=== PATIENT | male | born 1985 | race Caucasian/White ===

== ENCOUNTER 2017-05-17 09:41 | Inpatient (IN) | payer MEDICARE, MEDICAID ==
[~2017-05-17] VITALS: Ht 177.8 cm; Wt 120.3 kg
[2017-05-17] VITALS (10 sets, daily range): BP systolic 126–152; BP diastolic 78–93; PULSE 110–124; RESP 16–24; O2SAT 94–100
--- NOTE | 2017-05-17 09:50 | ED.REPORT ---
HPI-Psychiatric Illness Date of Service May 17, 2017 ED Provider: Daniel Culp DO Pt is a 31 year old male with a history of abscess who presents to the ED complaining of suicidal ideation. The pt reports using methamphetamine, dextromethorphan, and heroin. Patient reports using dextromethorphan over the last 3 days, he is unsure regarding the exact formulation however he believes some of the dextromethorphan came from a formulation of Margarette-Van Buren. His last drug use was this morning. He c/o associated insomnia. Pt also reports swelling , redness, and pain to his left forearm. He denies vomiting, SOB, and abdominal pain. The pt didn't feel safe being at home because he was worried that he would overdose. He states that he was feeling suicidal prior to his arrival with a plan to overdose on heroin, but he gave his heroin away before he could do it. Nursing Notes Stated Complaint: VOLUNTARY PSYCHIATRIC ADMISSION Chief Complaint: Suicidal ideation Nursing Notes Reviewed: Yes Allergies: Coded Allergies: No Known Allergies (Verified , 05/17/17) Uncoded Allergies: NO FOOD OR MED ALLERGIES (Allergy, Unknown, 02/01/04) No Known Allergies (Allergy, Unknown, 02/01/04) General Time Seen by MD: 09:48 Chief Complaint Suicidal ideation Hx Obtained From: Patient Arrived By: Walk-in Onset Occurred: Onset unknown Symptom Duration: Since onset Location: : Arm left Quality: Painful Severity: Current: Moderate Severity: Maximum: Moderate Recent Healthcare: No recent doctor visit, No recent hospitalization Similar Sx Previous: No Risk-Psychiatric Illness Suicide Risk Stratification Suicide Risk Factors - Adult: : Substance abuseNo: Alcohol use RF Statements: Risk factors reviewed Past Medical History Past Medical History Asthma Anxiety Past Surgical History None reported Smoking History Current Every Day Smoker Social History Alcohol Use: Denies alcohol use Drug Use: IV drugs, Meth, Other (dextromethorphan) Other Social History: Good social support Ambulatory Status Independent Review of Systems + left arm erythema Respiratory: Denies: Shortness of breath GI: Denies: Abdominal pain, Vomiting Psychiatric: Reports: Suicidal ideation Complete sys rev & neg: except as marked. Musculoskeletal: Reports: Extremity pain (left arm), Extremity swelling (left arm) Physical Exam Initial Vital Signs Vital Signs (First) Date Time Temp Pulse Resp B/P Pulse Ox O2 Delivery O2 Flow Rate FiO2 05/17/17 09:53 37.4 124 20 152/84 95 Room Air Initial VS: Reviewed Head / Eyes: Atraumatic, Normocephalic Neck: Supple, Full range of motion Respiratory: Breath sounds normal, Clear to auscultation, No respiratory distress Abdomen / GI: Soft, Non-tender Skin: Warm, Dry, No cyanosis General/Constitutional: Awake, Alert Neurologic: Speech NL, CN II - XII intact PSYCHIATRIC: Not actively suicidal. Suicidal prior to ED visit with plan to overdose on heroin. Cardiovascular: Regular rhythm, Heart sounds NL Heart Rate / Rhythm: Positive: Tachycardia Hypertensive Upper Extremity / MS: Neurologic intact, Vascular intact Cellulitus of the left forearm without induration or fluctuation or abscess. Interpretation & Diagnostics Lab Results Interpretation Result Diagram: 05/17/17 1020 05/17/17 1020 Test 05/17/17 10:20 White Blood Count 13.0th/mm3 (3.8-10.1) Red Blood Count 4.53mil/mm3 (4.40-5.80) Hemoglobin 14.3g/dL (13.8-17.2) Hematocrit 40.1% (41.0-50.0) Mean Corpuscular Volume 88.5fL (81-100) Mean Corpuscular Hemoglobin 31.6pg (27.0-35.0) Mean Corpuscular Hemoglobin Concent 35.7% (32.0-37.0) Red Cell Distribution Width 12.7% (12.3-15.4) Platelet Count 216bil/L (150-400) Neutrophils (%) (Auto) 64.1% (40-74) Lymphocytes (%) (Auto) 20.0% (14-46) Monocytes (%) (Auto) 13.7% (4-12) Eosinophils (%) (Auto) 1.5% (0-5) Basophils (%) (Auto) 0.2% (0-3) Prothrombin Time 10.7sec (8.1-12.5) Prothromb Time International Ratio 1.00ratio Sodium Level 133mEq/L (134-144) Potassium Level 3.4mEq/L (3.5-5.2) Chloride Level 91mEq/L (97-108) Carbon Dioxide Level 24mmol/L (18-29) Blood Urea Nitrogen 20mg/dL (6-20) Creatinine 1.36mg/dL (0.76-1.27) Estimat Glomerular Filtration Rate 65mL/min (>59) Glucose Level 108mg/dL (60-99) Calcium Level 8.4mg/dL (8.5-10.1) Total Bilirubin 0.6mg/dL (0.0-1.2) Aspartate Amino Transf (AST/SGOT) 368U/L (0-50) Alanine Aminotransferase (ALT/SGPT) 116U/L (0-44) Alkaline Phosphatase 58U/L (25-150) Total Protein 7.0g/dL (6.4-8.4) Albumin 4.1g/dL (3.4-5.0) Thyroid Stimulating Hormone (TSH) 1.920uIU/mL (0.450-4.500) Hold Uribe Top Tube Received (Received) Salicylates Level 3.0ug/mL (30-250) Acetaminophen Level 15.0ug/mL Rx (10-25) Lab Results Interpretation: pH - 7.398 pCO2 - 49 cHCO3 - 29.4 cBase - 4.1 tHb - 14.6 sO2 - 61.2 FCOHb - 3.1 FMetHb - 1.0 FO2Hb - 58.7 Re-Eval/Medical Decision Med Decision/Clinical Course Polysubstance abuse with presumed acetaminophen overdose. (Margarette-Van Buren formulations with dextromethorphan containing acetaminophen) Will start N-acetylcysteine. Additionally the patient has cellulitis of the left forearm from IV drug abuse without evidence of abscess currently and thoughts of suicidal ideation without intent and contracts for safety. Source of Hx: Old records Re-Evaluation/Progress #1: Time of Eval: 11:28 Re-Evaluation/Progress Note: Pt rechecked. Pt reports that he was tested negative for Hep C a few weeks ago. All questions addressed. Re-Evaluation/Progress #2: Time of Eval: 11:36 Re-Evaluation/Progress Note: Pt rechecked. Informed pt of plan for admission. Pt understands and agrees with plan for admission. All questions addressed. Consultation #1: Call Returned at: 11:30 Magician Helper: Agrees with eval, Agrees with plan Note: Consulted with Poison Control. Discussed pt's case. Consultation #2: Call Returned at: 11:36 Magician Helper: Agrees with eval, Agrees with plan Note: Consulted with Pharmacy. Discussed pt's case. They will start the acetominophen toxicity protocol. Consultation #3: Referral / Consult Name: Gt Ba MD Consulted With: Hospitalist Call Returned at: 12:05 Magician Helper: Will see patient, Agrees with eval, Agrees with plan, Accepts admit Counseled Regarding: Diagnosis, Lab results, Need for admission Discharge & Departure Impression: Primary Impression: Acetaminophen toxicity Encounter type: initial encounter Injury intent: undetermined intent Qualified Code: T39.1X4A - Poisoning by 4-Aminophenol derivatives, undetermined , initial encounter Additional Impressions: Suicidal ideation Polysubstance abuse Cellulitis of left forearm Disposition: ADMITTED TO HOSPITAL Discharge Condition All VS Reviewed: Yes Condition: Stable Referrals: [facility] Crit Care Except Billable Proc Time Spent: 30-74 minutes (35minutes) Services Performed: Patient management by me, Time spent at bedside, Reviewing test results, Reviewing imaging, Discussing patient care, Documentation in record Critical Care Notes: See MDM Scribe Attestation Portions of this note were transcribed by Dian Camp. I, Dr. Culp personally performed the history, physical exam and medical decision-making; I reviewed and confirmed the accuracy of the information in the transcribed note. Signed by: Paulette Rios, 05/17/17. copies to: [facility] Daniel Culp DO May 17, 2017 09:50 Dian Ken May 17, 2017 10:02
[2017-05-17] MEDS ORDERED: 0.9% Sodium Chloride 1,000 ML IV ONE (10:00)
[2017-05-17] MEDS ORDERED: Trimethoprim-Sulfa 160 mg-800 mg Tablet PO ONE (10:20)
[2017-05-17 10:37] LABS: BASOPHILS % (AUTO) 0.2 % (0-3); EOSINOPHILS % (AUTO) 1.5 % (0-5); MONOCYTES % (AUTO) 13.7 % (4-12); Mean Corpuscular Hemoglobin 31.6 pg (27.0-35.0); Mean Corpuscular Volume 88.5 fL (81-100); NEUTROPHILS % (AUTO) 64.1 % (40-74); Platelet Count 216 bil/L (150-400)
--- NOTE | 2017-05-17 10:38 | ABG ---
DateTimeAnalyzed 10:30:00 -_ pH ____7.398 - 7.320 7.420 pCO2 ___48.7__ -mmHg 41.0 51.0 HCO3- ___29.4__ -mmol/L ABE ____4.1__ -mmol/L tHb ___14.6__ -g/dL 12.0 18.0 O2Hb ___58.7__ -% COHb ____3.1__ -% 0.0 1.5 MetHb ____1.0__ -% 0.4 1.5 sO2 ___61.2__ -% FIO2 ___21.0__ -% Drawn By LAB - Date/Time Notified____ 10:37:00 -_ Notified By rs - Notified Whom Okelley, Daniel -____ B 757 -mmHg tO2 ___12.0__ -Vol%
[2017-05-17] MEDS: D5W IV SCH ×4 (11:40→23:03)
[2017-05-17] MEDS ORDERED: Acetylcysteine 5,000 mg/500 mL D5W IV SCH ×2 (11:40)
[2017-05-17] MEDS: ACETYLCYSTEINE IV SCH ×4 (11:40→23:03)
[2017-05-17] MEDS ORDERED: 0.9% Sodium Chloride 1,000 ML IV SCH (12:06)
[2017-05-17] MEDS ORDERED: Alum-Mag Hydrox-Simeth 30 mL Suspension PO PRN ×2 (12:10→12:50)
[2017-05-17] MEDS ORDERED: Ondansetron 2 mg/mL 2 mL Inj IVPUSH PRN ×2 (12:10→12:50)
[2017-05-17] MEDS ORDERED: Polyethylene Glycol (PEG) 17 Gm Powder PO PRN (12:50)
[2017-05-17] MEDS ORDERED: CLON0.1T PO (13:15)
[2017-05-17] MEDS ORDERED: VENL150C98 PO (13:15)
[2017-05-17] MEDS ORDERED: AMIT100T2 PO (13:15)
[2017-05-17] MEDS ORDERED: MELA1TAB21 PO (13:15)
[2017-05-17] MEDS ORDERED: ALBU8.5H2 INHALATION (13:16)
[2017-05-17] MEDS: 0.9% Sodium Chloride 1,000 ML IV SCH ×2 (15:46→22:48)
--- NOTE | 2017-05-17 15:49 | PCM.HPMED ---
Subjective Date of Service May 17, 2017 Primary Provider: Admitting Physician: Gt Ba MD Primary Care Physician: [facility] Chandan Tang Attending Physician: Gt Ba MD Admit Status: From the Emergency Department, [facility] Telemetry Chief Complaint: Weakness and anxiety History of Present Illness: This patient presented to the emergency department with weakness and anxiety. He has a history of a recent relapse involving both methamphetamine smoking and heroin injection. The patient had been clean for about 5 months and was seen in [facility]. He is currently on a court-ordered program. About 3 or 4 days ago he developed a cough preceded the use of several qzds-[id number]-[id number] cough syrups. He notes that his use of these cough syrups and Margarette-Marietta escalated. He is then very for you regarding the last 2 days. However he does have some memory now of using heroin as well as smoking meth. There really is no additional information that he can provide. He was suspected to have a Tylenol overdose but one asked about this has no clear memory of taking Tylenol or attempted to hurt himself. His Tylenol level was normal however his LFTs were elevated. He was started on Mucomyst protocol for possible Tylenol overdose after discussion with the poison center. The patient feels extremely anxious. He notes redness in his arm associated with multiple obvious attempts at IV access for heroin. He denies any shortness of breath. He really cannot provide much in terms of specific other information. No fevers or chills no pain. Review of Systems: He denies diarrhea or nausea. He denies any leg swelling. All else reviewed and otherwise unremarkable except as noted in history of present illness. Allergies Coded Allergies: No Known Allergies (Verified , 05/17/17) Uncoded Allergies: NO FOOD OR MED ALLERGIES (Allergy, Unknown, 02/01/04) No Known Allergies (Allergy, Unknown, 02/01/04) Home Medications None PMH Bipolar Major depression Anxiety Asthma Obesity Heroine abuse Methamphetamine abuse Surgical History None Family History CAD and asthma Social History Occupation: none Hx Alcohol Use: No Hx Substance Use: Yes (meth, heroine, dextromethaphine) Hx Tobacco Use: No Smoking Status: Current Every Day Smoker Exam Vital Signs Vital Sign - Last Date Time Temp Pulse Resp B/P Pulse Ox O2 Delivery O2 Flow Rate FiO2 05/17/17 14:20 115 05/17/17 13:58 36.9 16 138/93 95 Room Air Exam Oriented 3. Moderately anxious, fluent speech. Anxious affect. The patient appears to be somewhat twitchy. Hyperkeratotic. Normal skull. Normal nose and ears. Anicteric sclera, symmetric pupils Oropharynx is unremarkable, no facial droop. Neck is supple, normal thyroid. No adenopathy. Lungs are clear, normal effort rate. Heart is regular without murmur gallop or rub. Abdomen soft, nondistended or tender. Extremities are free of pedal edema. Good radial and pedal pulses. Skin is free of rash, lesions. No petechiae or ecchymosis. He has multiple pustules over his face. He has multiple tattoos over her arms. Her form is somewhat red with multiple obvious areas of IV access. Joints are grossly normal. Cranial nerves are grossly normal. Motor strength is normal in all extremities. Normal muscular tone. Lab and Diagnostics Result Diagram: 05/17/17 1020 05/17/17 1020 Assessment & Plan Possible Tylenol overdose, present on admission and active. We will continue the Mucomyst protocol was ordered EGD and follow liver function tests. Elevated liver function tests, present on admission and active. We will check hepatitis C antigen and reflex PCR. Anxiety, present on admission. This is likely related to anxiety and methamphetamine as well as her withdrawal. We will treat him with lorazepam as needed and follow clinically. Methamphetamine abuse, present on admission. The plan is to treat for withdrawal symptoms Heroin abuse, present on admission. The plan is for withdrawal symptoms Possible left forearm cellulitis, present on admission. Nares swab for MRSA and ceftriaxone. Bipolar and anxiety, present on admission. We will try to decrease determine if he has been on medications recently and reinstitute these. Patient is admitted for observation status. Assessment 1 I length of stay. Pain Evaluation: Adequate Pain Control Resuscitation Status: CPR: Attempt Resuscitation Time spent 40 minutes Gt Ba MD May 17, 2017 15:49
--- NOTE | 2017-05-17 19:24 | NUR ---
Admit to PCC Pt admitted to [facility] at 13:00. Report called from Lucia silva RN. Pt has inflammation on his left forearm which looks infected, physician aware. Pt also reports that he broke a tooth yesterday and he is very fixated on it, picking at it constantly till it is bleeding. Cardiac: Pt denies CP, Tele SR 90-110 Resp: Pt denies SOB, SPo2 mid 90s on RA. GI/: Pt had nausea and vomiting in the first 30min post transfer to [facility]. 200ml of emesis. pt continues to have low grade nausea. denies wanting meds for nausea. Neuro: A&Ox3, SHELLEY, Pt is very anxious, picking his teeth and pacing the room. 1mg ativan IV given with mild effectiveness, discussed increasing dose with physician for NOC shift, dose increased to 1-2mg. Pt reliably signed a no self-harm agreement upon admit.
[2017-05-17] MEDS ORDERED: Potassium Chloride 20 mEq SR Tablet PO ONE (21:45)
[2017-05-17] MEDS: cefTRIAXone Inj 1,000 MG in Dextrose 5% Minibag Plus 50 ML IV SCH (22:19)
--- NOTE | 2017-05-17 22:30 | NUR ---
Potassium: P: Potassium of 3.4--not treated. I: Dr. Richardson notified of potassium level. Order obtained for 20 meq or KCl PO. E: Dose administered. Will cont. to monitor.
[2017-05-18] VITALS (10 sets, daily range): BP systolic 110–123; BP diastolic 67–74; PULSE 82–105; RESP 16–22; O2SAT 92–98
[2017-05-18] MEDS ORDERED: Haloperidol 5 mg/mL Inj IVPUSH ONE (02:15)
--- NOTE | 2017-05-18 03:10 | NUR ---
Transfer of Rooms: Pt pulled out 3rd PIV within minutes after placement. Pt transferred to room 2008 at 0255 for better visibility of pt. Pt ambulated with RN to room; pt noted to have an unsteady gait. [place] bed alarm activated. Bed in the low and locked position. Will cont. to closely monitor pt.
[2017-05-18 03:41] LABS: BASOPHILS % (AUTO) 0.2 % (0-3); EOSINOPHILS % (AUTO) 2.1 % (0-5); MONOCYTES % (AUTO) 16.9 % (4-12); Mean Corpuscular Hemoglobin 31.7 pg (27.0-35.0); Mean Corpuscular Volume 88.1 fL (81-100); NEUTROPHILS % (AUTO) 53.1 % (40-74); Platelet Count 219 bil/L (150-400)
--- NOTE | 2017-05-18 04:41 | NUR ---
Effects of Haldol: P: Pt very restless and fidgety; constantly up and moving in the room after 8 mg of IV Ativan. Pt pulling out PIVs and hallucinating--both auditory and visual hallucinations noted. I: Dr. Richardson notified. New order obtained for 5 mg of IV Haldol. Dose administered at 0230. Pt proceeded to pull out his 3rd PIV after Haldol was administered. Pt moved to room 2008 for better pt visibility. PIV replaced and IVFs continued. [place] bed alarm activated, bed in the low and locked position and call light placed within reach of the pt. E: Pt fell asleep and is sleeping soundly. Continuous pulse oximetry placed on the pt; pt saturating well and in stable condition. HR in the high 90s.
--- NOTE | 2017-05-18 05:11 | NUR ---
Oxygen Desaturation: Pt noted to desaturate down to the 80s on RA. Pt placed on 2L of oxygen per NC. O2 saturations currently noted at 94 to 97%. Pt remains on continuous pulse oximetry. Will cont. to monitor.
[2017-05-18] MEDS ORDERED: KCl 40 mEq/D5W 500 mL 40 MEQ in IV Premix 1 EACH IV ONE (09:00)
[2017-05-18] MEDS: 0.9% Sodium Chloride 1,000 ML IV SCH (09:02)
--- NOTE | 2017-05-18 10:35 | NUR ---
Social Work: Screen/Multidisciplinary Rounds D: Pt discussed in multidisciplinary rounds; the patient is on day one of stay after a relapse of IV meth and heroin use. The patient is a resident at [facility] and involved with court ordered treatment. The patient reported to ED staff that he had a 5 month period of sobriety when he became sick with a cold. He began using cold medicine inducing a stretch of memory loss/impairment. Patient awoke yesterday to find that he had relapsed on heroin and meth but was endorsing suicidal ideation due to relapse. He came to the ED for evaluation but required medical hospitalization. The patient is not medically stable at this time and receiving IV Halidol. Provider has placed a CM order to complete a MH assessment when the patient is medically cleared, which will likely be tomorrow. FILLING HAULER acknowledges order and CM will see him when provider states he is appropriate for assessment. A: Pt who was living at the [facility] as a part of a court-ordered treatment program. P: Evolving; FILLING HAULER to continue to follow patient's clinical progress and complete MH assessment when the patient is medically stable/clear. JUSTIN Collier
[2017-05-18] MEDS ORDERED: Potassium Chloride 20 mEq SR Tablet PO ONE (12:10)
--- NOTE | 2017-05-18 13:48 | PCM.PNMED ---
Subjective Date of Service May 18, 2017 Subjective He is feeling better today. He denies any chest pain or cough. No shortness of breath. No abdominal pain. He does not remember much of last night. He did require Haldol 1 for agitation. His symptoms were not improved initially with lorazepam. Overnight events noted. Exam Vital Signs Vital Sign - Last Date Time Temp Pulse Resp B/P Pulse Ox O2 Delivery O2 Flow Rate FiO2 05/18/17 10:11 36.3 99 16 112/68 96 Nasal Cannula 1.00 Intake and Output 05/17/17 05/17/17 05/18/17 Cumulative From/Thru 15:00 23:00 07:00 05/17/17 09:53 - 05/18/17 06:45 Intake Total 1275 ml 1504 ml 2141 ml 4920 ml Output Total 1975 ml 1975 ml Balance 1275 ml -471 ml 2141 ml 2945 ml Intake Oral 600 ml 1130 ml 1730 ml IV Total 1275 ml 904 ml 1011 ml 3190 ml Output Urine Total 1975 ml 1975 ml # Bowel Movements 2 2 Exam Alert and oriented -3, no distress. Fluent speech Anicteric sclera. Lungs are clear with normal rate and effort Heart is regular without murmur gallop or rub Abdomen soft nontender, flat Extremities are free of edema. Skin is free of rash or lesions. Except he has several excoriations on his face. His left forearm has decreased redness but there is still multiple injections sites noted. IVs and Medications Medications Reviewed: Medications were reviewed in detail Lab and Diagnostics Result Diagram: 05/18/17 0250 05/18/17 0250 Assessment & Plan Possible Tylenol overdose, present on admission and improving. Poison control recommended finishing his acetylcysteine protocol. This will continue. He does have elevated LFTs which are stable but etiology is really unclear. Awaiting hepatitis C serology. Elevated liver function tests, present on admission and active. Await hepatitis C antigen and reflex PCR. Anxiety, present on admission and improved. This is likely related to anxiety and methamphetamine as well as heroin heroin withdrawal. The patient at this point is much improved. We will use Haldol as needed and oral lorazepam. Methamphetamine abuse, present on admission had resolved. The plan is to continue to treat for withdrawal symptoms Heroin abuse, present on admission and resolved. The plan is to monitor for withdrawal symptoms Possible left forearm cellulitis, present on admission and improving. Nares swab for MRSA and ceftriaxone. Bipolar and anxiety, present on admission and stable. We will try to decrease determine if he has been on medications recently and reinstitute these. Patient was admitted for observation status. We will change him to inpatient status is 0 require at least 1 more night of monitoring. Assessment 1 I length of stay. Resuscitation Status: CPR: Attempt Resuscitation Gt Ba MD May 18, 2017 13:48
[2017-05-18 16:52] LABS: INR 1.03 ratio
[2017-05-18 17:01] LABS: Bilirubin, Direct < 0.2 mg/dL (0.0-0.3)
--- NOTE | 2017-05-18 17:20 | NUR ---
Multidisciplinary Communication 0930 - Discussed his care with Dr. Ba and the rest of the multidisciplinary care team during morning rounds. Asked if he could have a prn order for Haldol as that seemed to work for him during the night. Dr. Ba said he would look into this (when assessing the pt later in the day the pt had done well and had not needed any Haldol. Dr. Ba and this nurse decided he didn't need anymore ordered). Also, asked Dr. Ba to order by mouth potassium instead of the IV as it was incompatible with his Acetylcysteine. He said he would change it. 1106 - Spoke to Andria from the Poison Control Center and gave her a report on the pt's condition. She said to make sure to order an LFT and INR lab draw about 1-2 hours before the Acetylcysteine finished up. She said she would call back later in the day to see what the results were. About 1200 - Reminded Dr. Ba to order my mouth potassium as none had been ordered. It was ordered and given to the patient. 1445 - His mother called and was given an update over the phone with the patient's permission. She said she would likely come in to see him later in the evening. 1545 - His Guidance Counselor came by to see him. With the patient's verbal consent his toxicology screen results from the ED were shown and given to the counselor. She talked to him about his care plan once he discharged from the hospital. 1550 - Per Dr. Cadet's request Andria from the Poison Control Center was called back. Dr. Cadet wanted to know if his LFT and INR needed to be drawn again. Andria confirmed that per protocol they needed to. Notified Dr. Cadet and the labs were ordered. Care continues.
[2017-05-18] MEDS: cefTRIAXone Inj 1,000 MG in Dextrose 5% Minibag Plus 50 ML IV SCH (20:07)
[2017-05-19] VITALS (7 sets, daily range): BP systolic 102–136; BP diastolic 68–83; PULSE 74–93; RESP 16–18; O2SAT 95–99
--- NOTE | 2017-05-19 03:48 | NUR ---
NOC Uneventful night. Pt slept and had no complaints. Pt sleepy but able to wake up with little stimuli. Pt oriented when asked questions. VSS. Continuing to monitor. Addendum: 05/19/17 at 0637 by PATRICIA GUSTAFSON RN Andria from Poison Control called at 1999 and was given lab results including INR and AST/ALT. Andria will call back in the AM to check patient status.
--- NOTE | 2017-05-19 12:57 | NUR ---
Case Management: [facility] delivered and explained to patient. Signed original placed in chart. Copy left at bedside. Sherrie Scherer RN
--- NOTE | 2017-05-19 15:34 | PCM.PNMED ---
Subjective Date of Service May 19, 2017 Subjective He is from a low bit better today. He is still weak. He is a little bit foggy. She denies any abdominal pain, nausea. No diarrhea or shortness of breath. No hallucinations. No overnight events noted. Exam Vital Signs Vital Sign - Last Date Time Temp Pulse Resp B/P Pulse Ox O2 Delivery O2 Flow Rate FiO2 05/19/17 11:58 36.4 78 16 102/68 96 Room Air 05/19/17 02:47 1.00 Intake and Output 05/18/17 05/18/17 05/19/17 Cumulative From/Thru 15:00 23:00 07:00 05/17/17 09:53 - 05/19/17 05:26 Intake Total 2218 ml 991 ml 8129 ml Output Total 1975 ml Balance 2218 ml 991 ml 6154 ml Intake Oral 756 ml 750 ml 3236 ml IV Total 1462 ml 241 ml 4893 ml Output Urine Total 1975 ml # Voids 5 4 9 # Bowel Movements 0 0 2 Exam Alert and oriented -3, no distress. Fluent speech Anicteric sclera. Lungs are clear with normal rate and effort Heart is regular without murmur gallop or rub Abdomen soft nontender, flat Extremities are free of edema. Skin is free of rash or lesions. IVs and Medications Medications Reviewed: Medications were reviewed in detail Lab and Diagnostics Result Diagram: 05/18/17 0250 05/19/17 0830 Assessment & Plan Possible Tylenol overdose, present on admission and improving. The patient was treated with NAC protocol. His LFTs are normalizing. Again this was for possible Tylenol overdose with hepatitis. A hepatitis C serology was unremarkable. Elevated liver function tests, present on admission and active. Negative hepatitis C antibody. Patient will continue to be observed for presumed for possible Tylenol withdrawal. He continues to be unclear as to what exactly happened the last several days prior to his admission. Anxiety, present on admission and improved. This is likely related to anxiety and methamphetamine as well as heroin heroin withdrawal. The patient at this point is much improved. We will use Haldol as needed and oral lorazepam. Methamphetamine abuse, present on admission had resolved. He continues to improve. Heroin abuse, present on admission and resolved. The plan is to monitor for withdrawal symptoms Possible left forearm cellulitis, resolved. Continue ceftriaxone Bipolar and anxiety, present on admission and stable. We will try to decrease determine if he has been on medications recently and reinstitute these. Patient was initially admitted to observation status, however this is changed inpatient status given his higher medical needs a longer period of time required for observation. Anticipate discharge tomorrow, Monday, May 20. The patient has been in touch with his supervisor publications production for a transition plan. Resuscitation Status: CPR: Attempt Resuscitation Gt Ba MD May 19, 2017 15:34
--- NOTE | 2017-05-19 17:00 | NUR ---
Multidisciplinary Communication [id number] - Discussed his care with Dr. Ba, Dr. Cadet, and the rest of the multidisciplinary care team during morning rounds. [id number] - Paged Dr. Ba who called back. Asked him if the patient could be off telemetry to take a shower. Dr. Ba said that yes he could and he would actually place an order to discontinue telemetry. It was discontinued and he took a shower. Care continues. Addendum: 05/19/17 at 1708 by RHIANNA URBINA RN [id number] - The [facility] called to get report. Gave them a report on his status, vitals, and labs. They said to call them back if he had any further issues. Care continues.
[2017-05-19] MEDS: cefTRIAXone Inj 1,000 MG in Dextrose 5% Minibag Plus 50 ML IV SCH (21:18)
[2017-05-20 05:04] VITALS: BP 109/69; PULSE 90; RESP 16; O2SAT 97
--- NOTE | 2017-05-20 05:45 | NUR ---
Rest/Safety Patient sleeping soundly overnight. Rouses easily for care. Denies thoughts of self harm at this time. Frequent rounding.
[2017-05-20 09:30] VITALS: BP 123/74; PULSE 78; RESP 16; O2SAT 97
[2017-05-20 09:54] LABS: INR 0.95 ratio
[2017-05-20 10:15] LABS: Bilirubin, Direct 0.2 mg/dL (0.0-0.3)
--- NOTE | 2017-05-20 15:36 | PCM.DIMED ---
Discharge Instructions Date of Service May 20, 2017 Dates of Hospitalization May 17, 2017 at 12:17 Discharge Diagnosis Discharge Diagnosis Possible Tylenol overdose, resolved. Elevated liver function tests, improved.. Anxiety, stable. Methamphetamine abuse, improved. Heroin abuse, improved. Possible left forearm cellulitis, resolved. Bipolar and anxiety, table. Call your provider Call your provider for: Fever or Chills Patient Instructions Patient Instructions You are being discharged to the detox unit and to return with guidance from your supervisor commissary production to [facility] approximately 2 days. She will be continued on your usual two antianxiety and depression medications. Follow-up plan He will resume group and other follow-up as instructed by your case finisher on Monday. Gt aB MD May 20, 2017 15:36
[2017-05-20] MEDS ORDERED: CLON0.1T PO (15:40)
[2017-05-20] MEDS ORDERED: VENL150C98 PO (15:40)
[2017-05-20] MEDS ORDERED: AMIT100T2 PO (15:40)
--- NOTE | 2017-05-20 15:46 | PCM.DC.MED ---
Discharge Summary Date of Service May 20, 2017 Dates of Hospitalization Date of Hospital Admission May 17, 2017 at 12:17 Date of Discharge: May 20, 2017 Providers: Admitting Physician: Gt Ba MD Primary Care Physician: [facility] Deyanira-Les ClydeAlannadarian Attending Physician: Gt Ba MD Diagnosis at Time of Discharge Diagnosis at Time of Discharge Possible Tylenol overdose, resolved. Elevated liver function tests, improved.. Anxiety, stable. Methamphetamine abuse, improved. Heroin abuse, improved. Possible left forearm cellulitis, resolved. Bipolar and anxiety, table. Consultations Poison control Procedures Invasive Procedures None Brief History This patient presented to the emergency department with weakness and anxiety. He has a history of a recent relapse involving both methamphetamine smoking and heroin injection. The patient had been clean for about 5 months and was seen in the [facility]. He is currently on a court-ordered program. About 3 or 4 days ago he developed a cough preceded the use of several [id number] cough syrups. He notes that his use of these cough syrups and [employer] escalated. He is then very for you regarding the last 2 days. However he does have some memory now of using heroin as well as smoking meth. There really is no additional information that he can provide. He was suspected to have a Tylenol overdose but one asked about this has no clear memory of taking Tylenol or attempted to hurt himself. His Tylenol level was normal however his LFTs were elevated. He was started on Mucomyst protocol for possible Tylenol overdose after discussion with the poison center. The patient feels extremely anxious. He notes redness in his arm associated with multiple obvious attempts at IV access for heroin. He denies any shortness of breath. He really cannot provide much in terms of specific other information. No fevers or chills no pain. Hospital Course Possible Tylenol overdose, present on admission and improving. The patient was treated with NAC protocol. His LFTs are normalizing. Again this was for possible Tylenol overdose with hepatitis. A hepatitis C serology was unremarkable. Elevated liver function tests, present on admission and active. Negative hepatitis C antibody. Patient will continue to be observed for presumed for possible Tylenol withdrawal. He continues to be unclear as to what exactly happened the last several days prior to his admission. Anxiety, present on admission and improved. This is likely related to anxiety and methamphetamine as well as heroin heroin withdrawal. The patient at this point is much improved. We will use Haldol as needed and oral lorazepam. Methamphetamine abuse, present on admission had resolved. He continues to improve. Heroin abuse, present on admission and resolved. The plan is to monitor for withdrawal symptoms Possible left forearm cellulitis, resolved. Continue ceftriaxone Bipolar and anxiety, present on admission and stable. We will try to decrease determine if he has been on medications recently and reinstitute these. Patient was initially admitted to observation status, however this is changed inpatient status given his higher medical needs a longer period of time required for observation. Hospital course. This patient was admitted and treated with Mucomyst for possible Tylenol overdose. He had normalization of all teeth and no recollection of ingesting Tylenol. He also came in with apparent methamphetamines and heroin intoxication. The outpatient detox without any major problems. Berrios of anxiety. He is also treated for left forearm cellulitis with ceftriaxone IV for several days. On the day of discharge coordination was made to gain him a detox bed where he will be observed the rest of the weekend and then discharged back to [facility] on Monday. Exam Vital Signs (Last) Date Time Temp Pulse Resp B/P Pulse Ox O2 Delivery O2 Flow Rate FiO2 05/20/17 09:30 36.9 78 16 123/74 97 Room Air 05/19/17 02:47 1.00 Exam Patient was seen and examined on the day of discharge Test 05/17/17 10:20 05/17/17 12:45 05/18/17 02:50 05/19/17 08:30 Thyroid Stimulating Hormone (TSH) 1.920uIU/mL (0.450-4.500) Hold Uribe Top Tube Received (Received) Salicylates Level 3.0ug/mL (30-250) Acetaminophen Level 15.0ug/mL Rx (10-25) Hepatitis C Antibody <0.1s/co ratio (0.0-0.9) Hold Urine Received (Received) White Blood Count 11.4th/mm3 (3.8-10.1) Red Blood Count 4.13mil/mm3 (4.40-5.80) Hemoglobin 13.1g/dL (13.8-17.2) Hematocrit 36.4% (41.0-50.0) Mean Corpuscular Volume 88.1fL (81-100) Mean Corpuscular Hemoglobin 31.7pg (27.0-35.0) Mean Corpuscular Hemoglobin Concent 36.0% (32.0-37.0) Red Cell Distribution Width 12.4% (12.3-15.4) Platelet Count 219bil/L (150-400) Neutrophils (%) (Auto) 53.1% (40-74) Lymphocytes (%) (Auto) 27.4% (14-46) Monocytes (%) (Auto) 16.9% (4-12) Eosinophils (%) (Auto) 2.1% (0-5) Basophils (%) (Auto) 0.2% (0-3) Sodium Level 139mEq/L (134-144) Potassium Level 3.6mEq/L (3.5-5.2) Chloride Level 103mEq/L (97-108) Carbon Dioxide Level 23mmol/L (18-29) Blood Urea Nitrogen 10mg/dL (6-20) Creatinine 0.72mg/dL (0.76-1.27) Estimat Glomerular Filtration Rate 135mL/min (>59) Glucose Level 97mg/dL (60-99) Calcium Level 8.3mg/dL (8.5-10.1) Test 05/20/17 09:29 Prothrombin Time 10.2sec (8.1-12.5) Prothromb Time International Ratio 0.95ratio Total Bilirubin 0.3mg/dL (0.0-1.2) Direct Bilirubin 0.2mg/dL (0.0-0.3) Aspartate Amino Transf (AST/SGOT) 102U/L (0-50) Alanine Aminotransferase (ALT/SGPT) 90U/L (0-44) Alkaline Phosphatase 45U/L (25-150) Total Protein 5.7g/dL (6.4-8.4) Albumin 3.4g/dL (3.4-5.0) Discharge Medications Discharge Medications Amitriptyline (Amitriptyline) 100 Mg Tablet 100 MG PO DAILY Prescribed by: GT BA MD Clonidine (Clonidine) 0.1 Mg Tablet 0.1 MG PO DAILY Prescribed by: GT BA MD Melatonin/Pyridoxine HCl (B6) (Melatonin 10 mg Tablet) 1 Each Tab.mphase 1 EACH PO HS (Reported) Venlafaxine ER (Venlafaxine ER) 150 Mg Cap.er.24h 150 MG PO DAILY Prescribed by: GT BA MD As needed Albuterol HFA (Proair HFA) 8.5 Gm Hfa.aer.ad 2 PUFFS INHALATION Q4H PRN PRN For Shortness of Breath (Reported) Followup Plan Disposition: Detox bed Follow-up plan He will resume group and other follow-up as instructed by your case packer and sealer on Monday. Patient Instructions You are being discharged to the detox unit and to return with guidance from your water hydrant installer to [facility] approximately 2 days. She will be continued on your usual two antianxiety and depression medications. Time spent 40 minutes Gt Ba MD May 20, 2017 15:46
--- NOTE | 2017-05-20 17:07 | NUR ---
TRAIN ELECTRONIC TECHNICIAN Note: Mental Health Evaluation/Discharge Patient Name/Info: Nicholas Terry Date/Time: 05/20/2017 3:30p.m. Reason for Hospital Visit: Pt was admitted on 05/17/2017 for weakness and anxiety. order received to see pt for mental health evaluation and safety planning. Current Situation: Pt explained that he has been living at [facility] court ordered transitional housing for the last 6 months. Pt has been doing well with outpt drug and mental health support. Pt states that he wasnt feeling well this week, had taken cough medicines and over the counter cold medicines which altered his judgement and clarity and pt ended up relapsing on meth and heroin during that time. Pt states when he realized he relapsed he was frustrated with himself and fearful he had just thrown away all the progress that he had accomplished these past months. Pt states he became overwhelmed with the possibility he might be kicked out of his transitional housing program and began to feel suicidal. Pt explained his CDP Linda from [place] came to visit pt and reassured him he was not being kicked out of the program and to concentrate on getting well. Pt denies any current suicidal ideation and states talking to his CDP Linda helped him a lot. Current Mental Status/ADL: Pt is a 31 year old male. Pt is a disheveled from his three day hospitalization but is otherwise well kept. Pt is cooperative with this assessment. Pt is alert and oriented to person, place and situation. Pt mood is okay. Pt affect is a little blunted. Pt speech is normal in rate and volume. Pt denies any major changes in his sleep or appetite. Pt denies any suicidal or homicidal ideation or thoughts of harming himself or others. Pt denies any auditory or visual hallucinations. Pt does not appear to be responding to any internal stimuli. Psychiatric History/Treatment: MIS check through [facility] completed. Pt currently enrolled in intensive outpt services with [facility]. Pt in court ordered transitional housing at [facility]. Pt counselor is Dariana Ortega. They have no record of hospitalizations for pt. Pt reports a prior overdose suicide attempt in 2013 on Klonopin. Chemical Dependency History/Treatment/Tox Screen: Pt was positive for amphetamines, meth and opiates. Pt BAL is 0. Pt enrolled in outpt [place] services with CDP is Linda ([phone]). Legal History/Assaultive Behavior/Violence History: Denies. Pt court ordered outpt tx. Pt states that he can experience irritability during withdrawals that can sometimes lead to violence. Diagnosis: Per [facility]: 33.2 Depressive Disorder. Disposition /Plan: Pt is not currently suicidal or homicidal. Pt denies any thoughts of harming himself or others. Pt is not gravely disabled. Pt reassured that his is able to continue in the program at [facility] and continue with outpt mental health and CD tx. Pt does not meet criteria for inpt hospitalization. TRAIN ELECTRONIC TECHNICIAN spoke with Pts [place] CDP Linda who explained that she agrees with pt being discharged today but would like him to go to [facility] for continued Detox and stabilization for 1-2 days and then transition home, rather than going straight back to [facility]. TRAIN ELECTRONIC TECHNICIAN discussed this with MD and pt who are both in agreement with this plan. Pt completed intake and [facility] is able to accept p martha at 8:00p.m. Nadine arranged through [employer] to tow picker pt in the front lobby at 7:30p.m. RN updated. Pt CDP Linda updated and will be bringing pt bubble pack with his psych medications in it to [facility] tomorrow at 1200. [facility] updated of this and is agreeable to plan. Pt denies any other needs. No other discharge needs identified. All updated and agreeable to plan. JUSTIN Lewis
[2017-05-20 17:12] VITALS: BP 112/52; PULSE 75; RESP 15; O2SAT 98
--- NOTE | 2017-05-20 19:09 | NUR ---
anxiety/discharge Pt. has been sleeping for most of the shift. Complaining of intermittent anxiety and nicotine withdrawal. Pt. has been given ativan 2mg IV x3 this shift, effective. Nicotine patch effective for cravings. Frequent rounds made for pt. safety. Discharge Discharge instructions given. Care notes of tylenol toxicity and abcesses given. Prescriptions given. Saline lock discontinued. Pt. verbalized understanding. Pt. to be picked up by taxi at front lobby at 1930. Charge nurse aware.
--- NOTE | 2017-05-20 19:24 | NUR ---
Discharge Pt.' ride confirmed with [id number]; pt. to be picked up by ED front lobby at approx. 1935. Security called, escorted to lobby. Macy, urgent care physician notified.
== END 2017-05-20 19:20 | disposition other institution (70) | DRG 918 ==
LOC: SED 09:41 → PCC 12:17
PROVIDERS: ADMIT Hospitalist; ATTEND Hospitalist
PROC: 4A033B1 Measurement of Arterial Pressure, Peripheral, Percutaneous Approach (ICD-10-PCS; principal; 2017-05-17)
DX: T39.1X4A Poisoning by 4-Aminophenol derivatives, undetermined, initial encounter (principal); R45.851 Suicidal ideations; L03.114 Cellulitis of left upper limb; F15.93 Other stimulant use, unspecified with withdrawal; F19.10 Other psychoactive substance abuse, uncomplicated; F31.9 Bipolar disorder, unspecified; J45.909 Unspecified asthma, uncomplicated; F17.200 Nicotine dependence, unspecified, uncomplicated; F41.9 Anxiety disorder, unspecified